=== PATIENT | male | born 1965 ===

== ENCOUNTER 2017-08-08 00:58 | Emergency (ER) | payer OTHER, BC ==
[2017-08-08 01:24] VITALS: RESP 18; TEMP 97.9
--- NOTE | 2017-08-08 01:55 | C.PDOC ---
History Of Present Illness 52 year old male presents to the ER with a complaint of a left wrist injury at occurred at 00:30. 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 Denies weakness, numbness, or swelling. Chief Complaint (Nursing): Upper Extremity Problem/Injury History Per: Patient History/Exam Limitations: no limitations Onset/Duration Of Symptoms: Hrs Current Symptoms Are (Timing): Still Present Exacerbating Factor(s): Nothing Recent travel outside of the [place]: No Past Medical History Reviewed: Historical Data, Nursing Documentation, Vital Signs Vital Signs: Last Vital Signs Temp 97.9 F 08/08/17 01:17 Pulse 75 08/08/17 02:04 Resp 18 08/08/17 02:04 BP 128/73 08/08/17 02:04 Pulse Ox 98 08/08/17 02:24 - Medical History PMH: HTN Surgical History: No Surg Hx Family History: States: Unknown Family Hx - Social History Hx Alcohol Use: Yes Hx Substance Use: No - Immunization History Hx Tetanus Toxoid Vaccination: Yes Hx Influenza Vaccination: No Hx Pneumococcal Vaccination: No Review Of Systems Musculoskeletal: Positive for: Hand Pain (Left wrist) Neurological: Negative for: Weakness, Numbness Physical Exam - Physical Exam Appears: Non-toxic, No Acute Distress Skin: Normal Color, Warm, Dry Head: Atraumatic, Normacephalic Extremity: Tenderness (Left wrist), Capillary Refill (<2 seconds), No Deformity , No Swelling Pulses: Left Radial: Normal, Right Radial: Normal Neurological/Psych: Oriented x3, Normal Speech, Normal Cognition, Normal Motor, Normal Sensation ED Course And Treatment O2 Sat by Pulse Oximetry: 98 (Room air) Pulse Ox Interpretation: Normal - Other Rad Left wrist x-ray X-Ray: Interpreted by Me, Viewed By Me Interpretation: No acute fractures or dislocations. Progress Note: Left wrist x-ray ordered. Motrin administered. Patient's x-ray was negative, patient placed in brandyn wrap and discharged with ortho referral. Disposition - Disposition Referrals: Bridget Haywood MD [Staff Provider] - Disposition: HOME/ ROUTINE Disposition Time: 01:53 Condition: STABLE Additional Instructions: Follow up with PMD and Orthopedist within 1-2 days. Return to ED if feel worse. Prescriptions: Ibuprofen [Motrin Tab] 600 mg PO Q8 #30 tab Instructions: Wrist Sprain (ED) Forms: [facility] (Greenlandic), Work Excuse Print Language: CYPRIOT - Clinical Impression Clinical Impression: Wrist sprain - Scribe Statement The provider has reviewed the documentation as recorded by the Scribe Aureliano Paul All medical record entries made by the Scribe were at my direction and personally dictated by me. I have reviewed the chart and agree that the record accurately reflects my personal performance of the history, physical exam, medical decision making, and the department course for this patient. I have also personally directed, reviewed, and agree with the discharge instructions and disposition.
[2017-08-08 02:15] VITALS: BP 128/73; PULSE 75
[2017-08-08 02:21] VITALS: O2SAT 98
--- NOTE | 2017-08-08 08:34 | RAD ---
PROCEDURE: Left Wrist Radiographs. HISTORY: injury COMPARISON: None. FINDINGS: BONES: Bone alignment and mineralization are normal. There is no acute displaced fracture or bone destruction. JOINTS: The proximal and distal carpal rows are maintained. The joint spaces are normal. SOFT TISSUES: Normal. OTHER FINDINGS: None. IMPRESSION: No acute fracture or dislocation.
== END 2017-08-08 02:05 | disposition home or self-care (01) ==
LOC: C.ER 00:58
DX: S63.502A Unspecified sprain of left wrist, initial encounter (principal); X58.XXXA Exposure to other specified factors, initial encounter; Y92.89 Other specified places as the place of occurrence of the external cause; Y99.0 Civilian activity done for income or pay